=== PATIENT | male | born 1950 | race Caucasian/White ===

== ENCOUNTER 2016-05-27 10:18 | Day surgery (SDC) | payer MEDICARE ==
[~2016-05-27 10:18] MED LIST: 0.9% Sodium Chloride 1,000 ML IV SCH; CHOL100043 PO; SIMV40TA5 PO; Sodium Chloride LOK Flush 10 mL Syringe IV PRN; fentaNYL-PF 50 mCg/mL 2 mL Inj IVPUSH PRN
[2016-05-27 10:36] VITALS: BP 126/79; PULSE 54; RESP 16; O2SAT 99
[2016-05-27] MEDS ORDERED: RANI150C4 PO (10:36)
[2016-05-27 11:52] VITALS: BP 100/69; PULSE 50; RESP 16; O2SAT 97
[2016-05-27 12:01] VITALS: BP 99/68; PULSE 50; RESP 12; O2SAT 97
[2016-05-27 12:11] VITALS: BP 97/68; PULSE 52; RESP 14; O2SAT 97
[2016-05-27 12:21] VITALS: BP 109/79; PULSE 55; RESP 14; O2SAT 100
--- NOTE | 2016-05-27 13:06 | ENDO ---
[address] [address] ENDOSCOPY PROCEDURE PATIENT: MORIAH MORALES : 1950 MR#: [id number] ADMIT: 05/27/2016 JOB ID: [id number] DATE: 05/27/2016 PROCEDURE: Colonoscopy. INDICATIONS: Screening. The patient's ASA classification is 2. Mallampati score is 2. MEDICATIONS: 1. Versed 4 mg. 2. Fentanyl 75 mcg. INSTRUMENT USED: PCF H 180 AL. PREPARATION QUALITY: Was good. PROCEDURE DETAILS: After informed consent was obtained, the patient was brought into the GI suite, where he was placed on oxygen via nasal cannula and monitored with continuous pulse oximeter, telemetry, and blood pressure monitoring. A time-out was performed. Then, he was placed in a left lateral decubitus position and medications were administered for sedation. Digital rectal examination with palpation of the prostate was performed, which was unremarkable. The colonoscope was then inserted into the rectum and advanced under direct visualization to the cecum, which was identified by the presence of the ileocecal valve and appendiceal orifice. Once the cecum was reached, the colonoscope was withdrawn back into the rectum as the mucosa and lumen were examined. In the rectum, retroflexion was performed. Following retroflexion, remaining air in the rectum was suctioned, and the procedure was completed. FINDINGS: 1. Scattered diverticula seen throughout the sigmoid colon. 2. Otherwise normal examination from rectum to cecum. IMPRESSION: Sigmoid diverticulosis. RECOMMENDATIONS: 1. Repeat colonoscopy in 10 years, sooner if symptoms should dictate. 2. Fiber rich diet. COMPLICATIONS: None. ESTIMATED BLOOD LOSS: 0.
== END 2016-05-27 23:59 | disposition home or self-care (01) ==
LOC: END 10:18
PROVIDERS: ATTEND Internal Medicine Gastroenterology
DX: Z12.11 Encounter for screening for malignant neoplasm of colon (principal); K57.30 Diverticulosis of large intestine without perforation or abscess without bleeding; E78.5 Hyperlipidemia, unspecified; E78.00 Pure hypercholesterolemia, unspecified
CPT/HCPCS: G0121; G0500; J2250; J3010; J7030